=== PATIENT | female | born 1970 | race Caucasian/White ===

== ENCOUNTER 2017-09-23 05:47 | Inpatient (IN) | payer OTHER ==
[2017-09-23] MEDS ORDERED: FENTAnyl 50 MCG/ML VIAL (07:32)
[2017-09-23] MEDS ORDERED: SUCCINYLCHOLINE CHLORIDE 100 MG/5 ML SYG IV (07:53)
[2017-09-23] MEDS ORDERED: PROPOFOL 20 ML (07:53)
[2017-09-23] MEDS ORDERED: ROCURONIUM 50 MG INJ (07:53)
[2017-09-23] MEDS ORDERED: LIDOCAINE 100 MG SYRINGE (07:54)
[2017-09-23] MEDS ORDERED: CEFAZOLIN 1 GM INJ (07:54)
[2017-09-23] MEDS ORDERED: SUGAMMADEX SODIUM 200 MG/2 ML VIAL IV (07:54)
[2017-09-23] MEDS ORDERED: DIPHENHYDRAMINE 50 MG INJ IV (08:30)
[2017-09-23] MEDS ORDERED: FENTAnyl 50 MCG/ML VIAL IV (08:30)
[2017-09-23] MEDS ORDERED: METOCLOPRAMIDE 10 MG INJ IV (08:30)
[2017-09-23] MEDS ORDERED: HYDROmorphONE (0.2 MG/ML) 10ML SYG IV ×3 (08:30)
[2017-09-23] MEDS: HYDROmorphONE 0.2 MG/ML PCA IV (09:28)
[2017-09-23] MEDS ORDERED: NALOXONE (0.4 MG/ML) INJ IV (09:30)
[2017-09-23] MEDS: FENTAnyl 50 MCG/ML VIAL IV ×2 (09:39→09:54)
[2017-09-23] MEDS: ONDANSETRON 4 MG INJ IV (09:44)
[2017-09-23] MEDS: MEPERIDINE 25 MG INJ IV (10:30)
[2017-09-23] MEDS: LACTATED RINGER'S 1,000 ML IV (17:22)
[2017-09-23] MEDS: HYDROmorphONE 0.5 MG/0.5 ML SYG IV ×2 (17:22→21:34)
[2017-09-24] MEDS: LACTATED RINGER'S 1,000 ML IV ×3 (01:32→16:14)
[2017-09-24] MEDS: HYDROmorphONE 2 MG/ML SYG IV (01:33)
[2017-09-24] MEDS ORDERED: VITAMIN A & D 5 GM OINT PACKET TOP (01:49)
[2017-09-24 05:16] LABS: ADD MAN DIFF? NO
[2017-09-24 05:23] LABS: BASOPHILS % 0.3 % (0.0-2.0); EOSINOPHILS % 0.1 % (0.0-7.0); HEMATOCRIT 35.9 % (37.0-47.0); HEMOGLOBIN 12.1 g/dl (12.0-16.0); LYMPHOCYTES # 1.7 10^3/ul (0.8-2.9); LYMPHOCYTES % 13.8 % (15.0-51.0); MEAN CORPUSCULAR HEMOGLOBIN 28.7 pg (29.0-33.0); MEAN CORPUSCULAR HGB CONC 33.7 g/dl (32.0-37.0); MEAN CORPUSCULAR VOLUME 85.3 fl (82.0-101.0); MEAN PLATELET VOLUME 11.2 fl (7.4-10.4); MONOCYTE # 0.8 10^3/ul (0.3-0.9); MONOCYTES % 6.8 % (0.0-11.0); NEUTROPHIL # 9.7 10^3/ul (1.6-7.5); NEUTROPHILS % 78.7 % (39.0-77.0); PLATELET COUNT 318 10^3/UL (140-415); RED BLOOD COUNT 4.21 10^6/ul (4.20-5.40); RED CELL DISTRIBUTION WIDTH 13.7 % (11.5-14.5)
[2017-09-24 05:23] LABS: WHITE BLOOD COUNT 12.3 10^3/ul (4.8-10.8)
[2017-09-24 05:48] LABS: ALANINE AMINOTRANSFERASE 42 IU/L (13-69); ALBUMIN 3.7 g/dl (3.3-4.9); ALBUMIN/GLOBULIN RATIO 1.27; ALKALINE PHOSPHATASE 53 IU/L (42-121); ANION GAP 17 (8-16); ASPARTATE AMINO TRANSFERASE 33 IU/L (15-46); BILIRUBIN,INDIRECT 0.1 mg/dl (0-1.1); BILIRUBIN,TOTAL 0.1 mg/dl (0.2-1.3); BLOOD UREA NITROGEN 8 mg/dl (7-20); CALCIUM 8.7 mg/dl (8.4-10.2); CARBON DIOXIDE 24 mmol/L (21-31); CHLORIDE 106 mmol/L (97-110); CREATININE 0.69 mg/dl (0.44-1.00); GLUCOSE 106 mg/dl (70-220); SODIUM 143 mmol/L (135-144); TOTAL PROTEIN 6.6 g/dl (6.1-8.1)
[2017-09-24] MEDS: BISACODYL 10 MG SUPP PR ×2 (06:26→16:14)
[2017-09-24] MEDS: MAGNESIUM HYDROXIDE 30ML CUP PO ×2 (06:26→16:14)
[2017-09-24] MEDS: HYDROmorphONE 0.5 MG/0.5 ML SYG IV ×5 (06:29→22:03)
[2017-09-24] MEDS ORDERED: OXYCODONE/ACETAMINOPHEN (5/325) TAB PO ×2 (10:00)
[2017-09-24 18:13] LABS: ADD UMIC YES; UR ASCORBIC ACID NEGATIVE (NEGATIVE); UR BACTERIA FEW /HPF (NONE SEEN); UR BILIRUBIN (Dip) NEGATIVE (NEGATIVE); UR BLOOD (Dip) 2+ mg/dL (NEGATIVE); UR CLARITY SLIGHTLY CLOUDY (CLEAR); UR COLOR STRAW (YELLOW); UR GLUCOSE (Dip) NEGATIVE (NEGATIVE); UR KETONES (Dip) NEGATIVE (NEGATIVE); UR LEUKOCYTE ESTERASE (Dip) NEGATIVE Leu/ul (NEGATIVE); UR NITRITE (Dip) NEGATIVE (NEGATIVE); UR RBC 22 /HPF (0-5); UR TOTAL PROTEIN (Dip) NEGATIVE (NEGATIVE); UR UROBILINOGEN (Dip) NEGATIVE (NEGATIVE); UR WBC 1 /HPF (0-5)
[2017-09-25] MEDS: LACTATED RINGER'S 1,000 ML IV ×3 (01:00→16:02)
[2017-09-25] MEDS: OXYCODONE/ACETAMINOPHEN (5/325) TAB PO ×6 (01:20→18:06)
[2017-09-25 05:16] LABS: ADD MAN DIFF? NO
[2017-09-25 05:21] LABS: WHITE BLOOD COUNT 10.7 10^3/ul (4.8-10.8)
[2017-09-25 05:21] LABS: BASOPHILS % 0.3 % (0.0-2.0); EOSINOPHILS % 0.3 % (0.0-7.0); HEMATOCRIT 36.1 % (37.0-47.0); HEMOGLOBIN 11.8 g/dl (12.0-16.0); LYMPHOCYTES # 1.7 10^3/ul (0.8-2.9); LYMPHOCYTES % 15.7 % (15.0-51.0); MEAN CORPUSCULAR HEMOGLOBIN 27.8 pg (29.0-33.0); MEAN CORPUSCULAR HGB CONC 32.7 g/dl (32.0-37.0); MEAN CORPUSCULAR VOLUME 85.1 fl (82.0-101.0); MONOCYTES % 9.1 % (0.0-11.0); NEUTROPHILS % 74.2 % (39.0-77.0); PLATELET COUNT 298 10^3/UL (140-415); RED BLOOD COUNT 4.24 10^6/ul (4.20-5.40); RED CELL DISTRIBUTION WIDTH 13.2 % (11.5-14.5)
[2017-09-25 05:45] LABS: ANION GAP 15 (8-16); BLOOD UREA NITROGEN 8 mg/dl (7-20); CALCIUM 8.7 mg/dl (8.4-10.2); CARBON DIOXIDE 27 mmol/L (21-31); CHLORIDE 107 mmol/L (97-110); CREATININE 0.67 mg/dl (0.44-1.00); GLUCOSE 104 mg/dl (70-220); POTASSIUM 3.7 mmol/L (3.5-5.1); SODIUM 145 mmol/L (135-144)
== END 2017-09-25 19:12 | disposition home or self-care (01) | DRG 742 ==
LOC: REC 05:47 → MS1 11:13
PROVIDERS: Obstetrics & Gynecology
PROC: 0UT90ZL Resection of Uterus, Supracervical, Open Approach (ICD-10-PCS; principal; 2017-09-23 07:26)
PROC: 0UT70ZZ Resection of Bilateral Fallopian Tubes, Open Approach (ICD-10-PCS; 2017-09-23 07:26)
PROC: 0UBC0ZZ Excision of Cervix, Open Approach (ICD-10-PCS; 2017-09-23 07:26)
PROC: 0USG0ZZ Reposition Vagina, Open Approach (ICD-10-PCS; 2017-09-23 07:26)
DX: D25.9 Leiomyoma of uterus, unspecified (principal); Z68.42 Body mass index [BMI] 45.0-49.9, adult; I10 Essential (primary) hypertension; N92.0 Excessive and frequent menstruation with regular cycle; N81.89 Other female genital prolapse; E66.01 Morbid (severe) obesity due to excess calories; E78.5 Hyperlipidemia, unspecified; G89.18 Other acute postprocedural pain; J45.909 Unspecified asthma, uncomplicated; K21.9 Gastro-esophageal reflux disease without esophagitis
CPT/HCPCS: 80048; 80053; 81001; 84702; 84703; 85025; 86850; 86900; 86901; 87040; 87086; 88302; 88305